=== PATIENT | female | born 1970 | race Caucasian/White ===

== ENCOUNTER → 2024-11-12 10:24 | Outpatient (REF) | payer OTHER, MEDICARE, SELFPAY | LOC: RAD 10:24 | PROVIDERS: ATTENDING PHYSICIAN Registered Nurse; FAMILY PHYSICIAN Family Medicine | DX: K21.9 Gastro-esophageal reflux disease without esophagitis (principal); Z68.41 Body mass index [BMI] 40.0-44.9, adult; R73.9 Hyperglycemia, unspecified | CPT/HCPCS: 74246 ==